=== PATIENT | female | born 1970 | race Caucasian/White ===

== ENCOUNTER 2017-11-28 12:20 | Day surgery (SDC) | payer OTHER ==
[2017-11-28] MEDS ORDERED: PROPOFOL 10 MG/ML VIAL IV ONE (12:21)
[2017-11-28] MEDS ORDERED: LIDOCAINE 2% MDV (20MG/ML) 20ML VIAL IV ONE (12:21)
--- NOTE | 2017-11-30 11:50 | Operative Note ---
DATE OF SURGERY: 11/28/2017 OPERATION: COLONOSCOPY to the cecum with cold snare polypectomy x1 and cold biopsy forceps polypectomy x1. INDICATION: Prior history of adenomatous polyps. The patient also with strong family history of colon cancer in her father and multiple second-degree relatives. She returns at this time after 5 years for surveillance colonoscopy. Her last examination 5 years ago completed by my associate failed to demonstrate any polyps. ANESTHESIA: Intravenous sedation was administered by the department of anesthesiology and included Diprivan titrated to effect. PROCEDURE: Following informed consent from this alert individual including a discussion of the risks and benefits of the procedure and an opportunity for the patient to ask questions, the patient was in the left lateral decubitus position. A digital rectal examination was performed. No abnormalities were noted. Following this, the Olympus RPS818 video colonoscope was inserted into the rectum without resistance. The rectal mucosa had a normal appearance with normal folds and distensibility. The colonoscope was advanced up through the bowel to the level of the cecum without much difficulty. Throughout the bowel the mucosa appeared normal, the folds were normal, and the bowel was fairly well distensible. There was a sessile 5-6 mm polyp noted in the descending colon removed with cold snare polypectomy and suctioned through the endoscope into a collection trap. The cecum was well defined by noting the appendiceal orifice and ileocecal valve. The colon preparation was good. Retroflexion in the cecum failed to demonstrate changes. From the base of the cecum, the colonoscope was then slowly withdrawn. There was 1 diminutive diverticulum noted in the sigmoid colon but no other mucosal changes appreciated. Within the rectum, there was a diminutive 3 mm polyp noted and removed with biopsy forceps. Retroflexion in the rectum was endoscopically unremarkable. The instrument was straightened and withdrawn. The patient tolerated the procedure well and was returned to the recovery area in stable condition. IMPRESSION: 1. A 5-6 mm descending colon polyp removed with cold snare polypectomy. 2. Diminutive 3 mm polyp removed from the rectum with cold biopsy forceps. 3. Solitary small diverticula in the sigmoid colon. RECOMMENDATIONS: The patient was advised to have recheck colonoscopy in 5 years' time or sooner should problems arise. Followup will otherwise be with Dr. Jared Hammer. Further recommendations forthcoming pending pathology. As always, thank you for allowing me to participate in the care of your patient. CC: Gurjit Hammer, DO MTDD
== END 2017-11-28 14:40 | disposition home or self-care (01) ==
LOC: HOP 12:20
PROVIDERS: ATTEND Internal Medicine Gastroenterology
DX: Z12.11 Encounter for screening for malignant neoplasm of colon (principal); Z86.010 Personal history of colon polyps; Z80.0 Family history of malignant neoplasm of digestive organs; D12.4 Benign neoplasm of descending colon; K62.1 Rectal polyp; K57.30 Diverticulosis of large intestine without perforation or abscess without bleeding; I48.91 Unspecified atrial fibrillation

== ENCOUNTER 2018-07-13 10:50 | Day surgery (SDC) | payer OTHER ==
[~2018-07-13 10:50] MED LIST: ACETAMINOPHEN 1,000 MG/100 ML BTL IV ONE
[2018-07-13] MEDS ORDERED: ONDANSETRON HCL IV 4 MG/2 ML VIAL IVP ONE (10:51)
[2018-07-13] MEDS ORDERED: SEVOFLURANE 250 ML INH ONE (10:51)
[2018-07-13] MEDS ORDERED: KETOROLAC 30 MG/ML VIAL IVP ONE (10:51)
[2018-07-13] MEDS ORDERED: DEXAMETHASONE 4 MG/ML 1ML VIAL IVP ONE (10:51)
[2018-07-13] MEDS ORDERED: MIDAZOLAM HCL 2MG/2ML VIAL IV ONE (10:51)
[2018-07-13] MEDS ORDERED: BUPIVACAINE 0.25% W/EPI MPF 30ML VIAL IVP ONE (10:51)
[2018-07-13] MEDS ORDERED: PROPOFOL 10 MG/ML VIAL IV ONE (10:51)
[2018-07-13] MEDS ORDERED: FENTANYL PF 100MCG/2ML VIAL IV ONE (10:51)
[2018-07-13] MEDS ORDERED: BUPIVACAINE 0.25% W/EPI MPF 30ML VIAL SQ ONE (12:50)
--- NOTE | 2018-07-14 08:50 | Operative Note ---
DATE OF SURGERY: 07/13/2018 Surgeon: Jovani Castillo DO PREOPERATIVE DIAGNOSES: 1. Chondromalacia of the left knee. 2. Torn medial meniscus, left knee. POSTOPERATIVE DIAGNOSES: 1. Chondromalacia of the medial femoral condyle, patella, trochlea, and lateral tibial plateau, left knee. 2. Loose joint body, left knee. OPERATION: 1. Arthroscopic chondroplasty medial femoral condyle, lateral tibial plateau, patella, trochlea, left knee. 2. Arthroscopic removal of loose joint body, left knee. DESCRIPTION OF PROCEDURE: This 48-year-old female was taken to the operating room and placed in the supine position on the operating room table where general anesthesia was induced. The left lower extremity was elevated, exsanguinated, and the tourniquet inflated to 300 mmHg. The leg was placed in an arthroscopic knee hope. Left knee prepped with Hibiclens and draped in the usual sterile fashion. An inferolateral portal was established for the 4 mm arthroscope and initial evaluation of the joint demonstrated normal appearance of the suprapatellar pouch. The patella demonstrated grade 2-3 chondromalacia throughout. The trochlea also demonstrated grade 3 chondromalacia in the center of the trochlea. This was down to the subchondral bone. Utilizing the probe, we were able to confirm that these fragments were unstable. We then used the rotating shaver to remove unstable fragments of the articular cartilage of the patellofemoral joint. The meniscus was examined in the medial compartment. Articular cartilage of the medial femoral condyle demonstrated advanced grade 2 changes and relatively large loose joint body was present about 1.5 cm in greatest dimension. This was grabbed and removed from the joint. The medial meniscus probed throughout its entirety and found to be normal. The intracondylar notch was examined and found to be normal. The lateral compartment was entered and grade 2 chondromalacia of the most medial aspect of the lateral tibial plateau demonstrated advanced grade 2 changes. The meniscus was probed and confirmed to be stable. The articular cartilage was not felt to be unstable except at the very center of this area which was about 0.5 cm in diameter. Chondroplasty was performed there to remove a flap of articular cartilage. The wound was then copiously irrigated and suctioned removing all loose bodies from the knee. All areas were reexamined and re-probed and no additional findings were present. The joint was suctioned. The instruments were removed. The portals infiltrated with 0.25% Marcaine with epinephrine. Sterile dressings applied. Tourniquet and knee hope released. The patient taken to the recovery room in satisfactory condition. 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 There was a relatively large loose joint body at least 1.5 cm in greatest dimension. No meniscal tears were present. CC: DO OSWALDO Garcia
== END 2018-07-13 13:55 | disposition home or self-care (01) ==
LOC: SUR 10:50
PROVIDERS: ATTEND Orthopaedic Surgery
DX: M94.262 Chondromalacia, left knee (principal); M23.42 Loose body in knee, left knee; I48.91 Unspecified atrial fibrillation; Z79.01 Long term (current) use of anticoagulants; G47.33 Obstructive sleep apnea (adult) (pediatric)
CPT/HCPCS: 29874; 01400; 93005; J1885; J2405; J3010